=== PATIENT | male | born 1985 | race Two or more races ===

== ENCOUNTER 2021-08-09 08:52 | Emergency (ER) | payer BC, OTHER ==
[~2021-08-09] VITALS: Ht 175.3 cm; Wt 63.5 kg
[2021-08-09 10:45] LABS: Basophils # (auto) 0 10 ^3/uL (0-0.2); Basophils % (auto) 0.4 % (0.0-2.0); Eosinophils # (auto) 0 10 ^3/uL (0-0.8); Eosinophils % (auto) 0.2 % (0.0-7.0); Hematocrit 48.9 % (41.0-53.0); Hemoglobin 16.9 g/dL (13.5-17.5); Lymphocytes # (auto) 1.5 10 ^3/uL (0.4-5.4); Lymphocytes % (auto) 16.6 % (10.0-50.0); Mean Corpuscular Hemoglobin 31.3 pg (28.0-32.0); Mean Corpuscular Hgb Conc. 34.5 g/dL (32.0-36.0); Mean Corpuscular Volume 90.7 fL (80.0-100.0); Monocytes # (auto) 0.3 10 ^3/uL (0-1.3); Monocytes % (auto) 3.4 % (0.0-12.0); Neutrophils # (auto) 7.3 10 ^3/uL (1.6-8.6); Neutrophils % (auto) 79.4 % (37.0-80.0); Nucleated Red Blood Cells % 0.1 %; Red Blood Cells 5.39 10^6/uL (4.5-5.90); Red Cell Distribution Width 13.6 % (11.8-14.3); White Blood Cell 9.1 10^3/uL (4.4-10.8)
[2021-08-09 10:59] LABS: BUN/Creatinine Ratio 8.3; Calcium 9.2 mg/dL (8.5-10.1); Potassium 4.7 mmol/L (3.5-5.1)
[2021-08-09 11:02] LABS: Bilirubin, Total 0.5 mg/dL (0.2-1.0); Total Protein 7.7 g/dL (6.4-8.2)
[2021-08-09] MEDS ORDERED: ONDANSETRON ODT 4 MG TAB PO ONE (13:45)
[2021-08-09] MEDS ORDERED: ALUM & MAG HYDROX-SIMETH LIQ(MAALOX) 30 ML PO ONE (13:45)
[2021-08-09] MEDS ORDERED: LIDOCAINE VISCOUS 2% 15ML UD PO ONE (13:45)
[2021-08-09] MEDS ORDERED: FAMOTIDINE 20 MG TAB PO ONE (13:45)
[2021-08-09] MEDS ORDERED: OMEP-434 PO (15:53)
[2021-08-09 16:16] VITALS: BP 130/81
== END 2021-08-09 16:18 | disposition home or self-care (01) ==
LOC: ER 08:52
DX: K21.9 Gastro-esophageal reflux disease without esophagitis (principal)
CPT/HCPCS: 36415; 80053; 82150; 83690; 85025; 99284; Q0162

== ENCOUNTER 2021-08-14 00:13 | Emergency (ER) | payer BC ==
[~2021-08-14] VITALS: Ht 175.3 cm; Wt 108.9 kg
[~2021-08-14 00:13] MED LIST: OMEP-434 PO
[2021-08-14 01:31] LABS: Basophils # (auto) 0.1 10 ^3/uL (0-0.2); Basophils % (auto) 0.6 % (0.0-2.0); Eosinophils # (auto) 0.1 10 ^3/uL (0-0.8); Eosinophils % (auto) 1.1 % (0.0-7.0); Hematocrit 46.4 % (41.0-53.0); Hemoglobin 15.7 g/dL (13.5-17.5); Lymphocytes # (auto) 2.6 10 ^3/uL (0.4-5.4); Lymphocytes % (auto) 22.9 % (10.0-50.0); Mean Corpuscular Hemoglobin 30.7 pg (28.0-32.0); Mean Corpuscular Hgb Conc. 33.8 g/dL (32.0-36.0); Mean Corpuscular Volume 90.8 fL (80.0-100.0); Monocytes # (auto) 0.5 10 ^3/uL (0-1.3); Monocytes % (auto) 4.8 % (0.0-12.0); Neutrophils # (auto) 7.9 10 ^3/uL (1.6-8.6); Neutrophils % (auto) 70.6 % (37.0-80.0); Nucleated Red Blood Cells % 0.1 %; Red Blood Cells 5.11 10^6/uL (4.5-5.90); Red Cell Distribution Width 13.6 % (11.8-14.3); White Blood Cell 11.2 10^3/uL (4.4-10.8)
[2021-08-14 01:48] LABS: Albumin 3.8 g/dL (3.4-5.0); BUN/Creatinine Ratio 6.1; Calcium 8.9 mg/dL (8.5-10.1); Potassium 4.1 mmol/L (3.5-5.1)
[2021-08-14 01:50] LABS: Bilirubin, Total 0.5 mg/dL (0.2-1.0); Total Protein 7.4 g/dL (6.4-8.2)
[2021-08-14] MEDS ORDERED: ALUM & MAG HYDROX-SIMETH LIQ(MAALOX) 30 ML PO ONE (02:00)
[2021-08-14] MEDS ORDERED: DICYCLOMINE HCL (10MG/ML) 2 ML AMPULE IM ONE (02:00)
[2021-08-14] MEDS ORDERED: DONNATAL 5ml ORAL Elix (BELLADONNA ALK-PHENOBARB) PO ONE (02:00)
[2021-08-14] MEDS ORDERED: LIDOCAINE VISCOUS 2% 15ML UD PO ONE (02:00)
[2021-08-14 04:00] VITALS: BP 119/74
== END 2021-08-14 04:15 | disposition home or self-care (01) ==
LOC: ER 00:13
DX: K21.9 Gastro-esophageal reflux disease without esophagitis (principal); K29.70 Gastritis, unspecified, without bleeding
CPT/HCPCS: 36415; 74176; 80053; 85025; 96372; 99284; J0500

== ENCOUNTER 2021-08-17 01:57 | Emergency (ER) | payer BC ==
[~2021-08-17] VITALS: Ht 175.3 cm; Wt 108.9 kg
[2021-08-17 03:16] LABS: Basophils # (auto) 0 10 ^3/uL (0-0.2); Basophils % (auto) 0.1 % (0.0-2.0); Eosinophils # (auto) 0 10 ^3/uL (0-0.8); Hematocrit 46.8 % (41.0-53.0); Hemoglobin 15.9 g/dL (13.5-17.5); Lymphocytes # (auto) 1.6 10 ^3/uL (0.4-5.4); Lymphocytes % (auto) 13.9 % (10.0-50.0); Mean Corpuscular Hemoglobin 30.7 pg (28.0-32.0); Mean Corpuscular Hgb Conc. 33.9 g/dL (32.0-36.0); Mean Corpuscular Volume 90.5 fL (80.0-100.0); Monocytes # (auto) 0.5 10 ^3/uL (0-1.3); Monocytes % (auto) 4.5 % (0.0-12.0); Neutrophils # (auto) 9.2 10 ^3/uL (1.6-8.6); Neutrophils % (auto) 81.5 % (37.0-80.0); Nucleated Red Blood Cells % 0.2 %; Red Blood Cells 5.17 10^6/uL (4.5-5.90); Red Cell Distribution Width 13.5 % (11.8-14.3); White Blood Cell 11.3 10^3/uL (4.4-10.8)
[2021-08-17 03:23] LABS: Albumin 3.9 g/dL (3.4-5.0); BUN/Creatinine Ratio 7.3; Potassium 3.8 mmol/L (3.5-5.1)
[2021-08-17 03:26] LABS: Bilirubin, Total 0.6 mg/dL (0.2-1.0); Total Protein 7.7 g/dL (6.4-8.2)
[2021-08-17] MEDS ORDERED: ONDANSETRON HCL 4 MG/2 ML VIAL IV ONE ×2 (04:30→08:45)
[2021-08-17] MEDS ORDERED: MORPHINE SULFATE 4 MG/ML SYR/VIAL IV ONE (04:30)
[2021-08-17 05:17] LABS: Urine WBC None Seen /hpf (0 - 3)
[2021-08-17] MEDS ORDERED: LIDOCAINE VISCOUS 2% 15ML UD PO ONE (05:30)
[2021-08-17] MEDS ORDERED: ALUM & MAG HYDROX-SIMETH LIQ(MAALOX) 30 ML PO ONE (05:30)
[2021-08-17] MEDS ORDERED: DONNATAL 5ml ORAL Elix (BELLADONNA ALK-PHENOBARB) PO ONE (05:30)
[2021-08-17 05:32] LABS: Urine Amorphous Crystal MOD /hpf (None Seen); Urine Bacteria FEW /hpf (None Seen); Urine Blood TRACE /uL (Negative); Urine Mucus FEW (None Seen); Urine Specific Gravity 1.021 (1.001-1.035)
[2021-08-17] MEDS ORDERED: KETOROLAC TROMETH 30 MG/ML 1ML VIAL IV ONE (08:45)
[2021-08-17 09:12] LABS: Alcohol, Urine < 3.0 mg/dL (0-10); Amphetamine Screen, Urine NEGATIVE (NEGATIVE); Barbiturate Scree,Urine NEGATIVE (NEGATIVE); Benzodiazephine Screen, Urine NEGATIVE (NEGATIVE); Cannabinoid Screen, Urine NEGATIVE (NEGATIVE); Cocaine Screen, Urine NEGATIVE (NEGATIVE); Opiate Scree,Urine NEGATIVE (NEGATIVE); Phencyclidine Screen, Urine NEGATIVE (NEGATIVE)
[2021-08-17 10:00] VITALS: BP 107/61
== END 2021-08-17 12:38 | disposition home or self-care (01) ==
LOC: ER 01:57
DX: K80.80 Other cholelithiasis without obstruction (principal); R91.1 Solitary pulmonary nodule
CPT/HCPCS: 36415; 74176; 80053; 80307; 81001; 83690; 85025; 96374; 96375; 96376; 99285; J1885; J2270; J2405

== ENCOUNTER 2021-08-20 07:39 | Inpatient (IN) | payer BC, OTHER ==
[~2021-08-20] VITALS: Ht 175.3 cm; Wt 166.4 kg
[2021-08-20] MEDS ORDERED: LIDOCAINE VISCOUS 2% 15ML UD PO ONE (08:30)
[2021-08-20] MEDS ORDERED: DONNATAL 5ml ORAL Elix (BELLADONNA ALK-PHENOBARB) PO ONE (08:30)
[2021-08-20] MEDS ORDERED: ALUM & MAG HYDROX-SIMETH LIQ(MAALOX) 30 ML PO ONE (08:30)
[2021-08-20 08:54] LABS: Basophils # (auto) 0 10 ^3/uL (0-0.2); Basophils % (auto) 0.3 % (0.0-2.0); Eosinophils # (auto) 0 10 ^3/uL (0-0.8); Eosinophils % (auto) 0.3 % (0.0-7.0); Hematocrit 46.3 % (41.0-53.0); Hemoglobin 16.1 g/dL (13.5-17.5); Lymphocytes # (auto) 1.4 10 ^3/uL (0.4-5.4); Lymphocytes % (auto) 11.9 % (10.0-50.0); Mean Corpuscular Hgb Conc. 34.7 g/dL (32.0-36.0); Mean Corpuscular Volume 89.5 fL (80.0-100.0); Monocytes # (auto) 0.8 10 ^3/uL (0-1.3); Monocytes % (auto) 6.3 % (0.0-12.0); Neutrophils # (auto) 9.8 10 ^3/uL (1.6-8.6); Neutrophils % (auto) 81.2 % (37.0-80.0); Nucleated Red Blood Cells % 0.1 %; Red Blood Cells 5.18 10^6/uL (4.5-5.90); Red Cell Distribution Width 13.1 % (11.8-14.3); White Blood Cell 12.1 10^3/uL (4.4-10.8)
[2021-08-20 09:06] LABS: Albumin 3.8 g/dL (3.4-5.0); Calcium 9.4 mg/dL (8.5-10.1); Potassium 4.1 mmol/L (3.5-5.1)
[2021-08-20 09:09] LABS: BUN/Creatinine Ratio 9.2; Bilirubin, Total 1.3 mg/dL (0.2-1.0); Total Protein 8.1 g/dL (6.4-8.2)
[2021-08-20] MEDS ORDERED: SODIUM CHLORIDE 0.9% 1,000 ML IV ONE (09:15)
[2021-08-20] MEDS ORDERED: HYDROmorphone HCL 2 MG/ML VL/or syr IV ONE ×3 (09:45→15:00)
[2021-08-20] MEDS ORDERED: ONDANSETRON HCL 4 MG/2 ML VIAL IV ONE ×2 (09:45→10:15)
[2021-08-20] MEDS ORDERED: PIPERACILLIN-TAZOB 3.375GM 100 ML IV ONE (13:15)
[2021-08-20] MEDS ORDERED: HYDROmorphone HCL 2 MG/ML VL/or syr IV PRN (14:45)
[2021-08-20] MEDS ORDERED: ONDANSETRON HCL 4 MG/2 ML VIAL IV PRN (14:45)
[2021-08-20] MEDS: SODIUM CHLORIDE 0.9% 1,000 ML IV SCH ×2 (15:02→22:45)
[2021-08-20 15:20] LABS: Cholesterol 147 mg/dL (< 200)
[2021-08-20 15:23] LABS: HDL Cholesterol 50 mg/dL (40-59); LDL Cholesterol 85 mg/dL (< 100); Triglycerides 87 mg/dL (< 150)
[2021-08-20] MEDS: HYDROmorphone HCL 2 MG/ML VL/or syr IV PRN ×2 (17:57→23:39)
[2021-08-20 19:38] VITALS: BP 122/66
[2021-08-20 22:00] VITALS: BP 135/79
[2021-08-20] MEDS: PIPERACILLIN-TAZOB 3.375GM 100 ML IV SCH (23:38)
[2021-08-21] MEDS ORDERED: PANT1INJ3 IV (02:48)
[2021-08-21] MEDS: HYDROmorphone HCL 2 MG/ML VL/or syr IV PRN ×3 (03:06→15:00)
[2021-08-21 05:27] VITALS: BP 127/85
[2021-08-21] MEDS: PIPERACILLIN-TAZOB 3.375GM 100 ML IV SCH (06:02)
[2021-08-21 06:28] LABS: Basophils # (auto) 0 10 ^3/uL (0-0.2); Basophils % (auto) 0.3 % (0.0-2.0); Eosinophils # (auto) 0.1 10 ^3/uL (0-0.8); Eosinophils % (auto) 1.2 % (0.0-7.0); Hematocrit 43.5 % (41.0-53.0); Hemoglobin 15.2 g/dL (13.5-17.5); Lymphocytes # (auto) 1.8 10 ^3/uL (0.4-5.4); Lymphocytes % (auto) 18.1 % (10.0-50.0); Mean Corpuscular Hemoglobin 31.4 pg (28.0-32.0); Mean Corpuscular Volume 89.8 fL (80.0-100.0); Monocytes # (auto) 0.9 10 ^3/uL (0-1.3); Monocytes % (auto) 8.9 % (0.0-12.0); Neutrophils # (auto) 7.3 10 ^3/uL (1.6-8.6); Neutrophils % (auto) 71.5 % (37.0-80.0); Red Blood Cells 4.85 10^6/uL (4.5-5.90); Red Cell Distribution Width 13.2 % (11.8-14.3); White Blood Cell 10.2 10^3/uL (4.4-10.8)
[2021-08-21 06:31] LABS: Albumin 3.3 g/dL (3.4-5.0); Calcium 8.9 mg/dL (8.5-10.1); Potassium 4.3 mmol/L (3.5-5.1)
[2021-08-21 06:36] LABS: BUN/Creatinine Ratio 8.6; Bilirubin, Total 1.6 mg/dL (0.2-1.0); Total Protein 7.2 g/dL (6.4-8.2)
[2021-08-21 08:00] VITALS: BP 140/84
[2021-08-21 08:35] VITALS: BP 140/84
[2021-08-21 09:39] LABS: INR 1.1 (0.9-1.15); Partial Thromboplastin Time 30.7 sec (23.6-33.0)
[2021-08-21] MEDS ORDERED: MIDAZOLAM HCL 2MG/2ML 2ml VIAL (1mg/ml) ONE (10:01)
[2021-08-21] MEDS ORDERED: MEPERIDINE HCL (50 MG/ML) 1 ML VIAL ONE (10:01)
[2021-08-21] MEDS ORDERED: fentaNYL CITRATE 100 MCG/2 ML VL ONE (10:01)
[2021-08-21] MEDS ORDERED: ceFAZolin 1GM/50ML 100 ML IV ONE (10:03)
[2021-08-21] MEDS ORDERED: BUPIVACAINE W/ EPINEPH 0.25% INJ 50ML MDV ONE (10:08)
[2021-08-21] MEDS ORDERED: SUCCINYLCHOLINE CHLORIDE 20 MG/ML 10ML VIAL IV ONE (10:08)
[2021-08-21] MEDS ORDERED: SUGAMMADEX 200mg/2ml Vial (100MG/ML) IV ONE (10:15)
[2021-08-21] MEDS ORDERED: ONDANSETRON HCL 4 MG/2 ML VIAL IV ONE (10:15)
[2021-08-21] MEDS ORDERED: ROCURONIUM 10MG/ML 10ML VIAL IV ONE (10:15)
[2021-08-21] MEDS ORDERED: PROPOFOL 10 MG/ML 20 ML IV ONE (10:18)
[2021-08-21] MEDS ORDERED: DexAMETHasone SOD PHOS 10MG/1ML VIAL INJ ONE (10:18)
[2021-08-21] MEDS ORDERED: MORPHINE SULFATE 4 MG/ML SYR/VIAL IV PRN (11:30)
[2021-08-21] MEDS ORDERED: MIDAZOLAM HCL 2MG/2ML 2ml VIAL (1mg/ml) IV PRN (11:30)
[2021-08-21] MEDS ORDERED: HYDROmorphone HCL 2 MG/ML VL/or syr IV PRN (11:30)
[2021-08-21] MEDS ORDERED: ePHEDrine SULFATE 50 MG/ML AMP IV PRN (11:30)
[2021-08-21] MEDS ORDERED: METOCLOPRAMIDE HCL 5MG/ml INJ 2ml VIAL IV PRN (11:30)
[2021-08-21] MEDS ORDERED: ONDANSETRON HCL 4 MG/2 ML VIAL IV PRN (11:30)
[2021-08-21] MEDS ORDERED: LABETALOL HCL 5 MG/ML 4ML SYRINGE IV PRN (11:30)
[2021-08-21] MEDS ORDERED: HYDROmorphone HCL 2 MG/ML VL/or syr ONE ×2 (11:55→11:58)
[2021-08-21] MEDS: SODIUM CHLORIDE 0.9% 1,000 ML IV SCH ×2 (13:05→22:12)
[2021-08-21] MEDS: metroNIDAZOLE 500MG/100ML 100 ML IV SCH ×2 (14:00→22:12)
[2021-08-21] MEDS: HYDROcodone-ACET 5/325MG TAB PO PRN (16:59)
[2021-08-21 17:00] VITALS: BP 109/70
[2021-08-21] MEDS ORDERED: HYDROmorphone HCL 2 MG/ML VL/or syr IV ONE (19:00)
[2021-08-21] MEDS ORDERED: KETOROLAC TROMETH 30 MG/ML 1ML VIAL IV ONE (19:00)
[2021-08-21 22:00] VITALS: BP 102/60
[2021-08-22 01:00] LABS: Urine Amorphous Crystal FEW /hpf (None Seen); Urine Bacteria FEW /hpf (None Seen); Urine Blood 1+ /uL (Negative); Urine Mucus FEW (None Seen); Urine Specific Gravity 1.039 (1.001-1.035); Urine WBC 3 /hpf (0 - 3)
[2021-08-22 01:14] LABS: Alcohol, Urine < 3.0 mg/dL (0-10); Amphetamine Screen, Urine NEGATIVE (NEGATIVE); Barbiturate Scree,Urine POSITIVE (NEGATIVE); Benzodiazephine Screen, Urine POSITIVE (NEGATIVE); Cocaine Screen, Urine NEGATIVE (NEGATIVE); Opiate Scree,Urine POSITIVE (NEGATIVE); Phencyclidine Screen, Urine NEGATIVE (NEGATIVE)
[2021-08-22 02:00] LABS: Cannabinoid Screen, Urine NEGATIVE (NEGATIVE)
[2021-08-22] MEDS: HYDROmorphone HCL 2 MG/ML VL/or syr IV PRN ×3 (04:53→20:10)
[2021-08-22 05:00] VITALS: BP 116/66
[2021-08-22] MEDS: metroNIDAZOLE 500MG/100ML 100 ML IV SCH ×3 (05:45→21:50)
[2021-08-22] MEDS: SODIUM CHLORIDE 0.9% 1,000 ML IV SCH (06:30)
[2021-08-22 07:14] LABS: Basophils # (auto) 0 10 ^3/uL (0-0.2); Basophils % (auto) 0.4 % (0.0-2.0); Eosinophils # (auto) 0 10 ^3/uL (0-0.8); Eosinophils % (auto) 0.3 % (0.0-7.0); Hemoglobin 13.4 g/dL (13.5-17.5); Lymphocytes # (auto) 1.6 10 ^3/uL (0.4-5.4); Lymphocytes % (auto) 15.5 % (10.0-50.0); Mean Corpuscular Hgb Conc. 34.4 g/dL (32.0-36.0); Mean Corpuscular Volume 90.4 fL (80.0-100.0); Monocytes # (auto) 0.8 10 ^3/uL (0-1.3); Monocytes % (auto) 7.5 % (0.0-12.0); Neutrophils # (auto) 7.9 10 ^3/uL (1.6-8.6); Neutrophils % (auto) 76.3 % (37.0-80.0); Nucleated Red Blood Cells % 0.1 %; Red Blood Cells 4.31 10^6/uL (4.5-5.90); Red Cell Distribution Width 13.1 % (11.8-14.3); White Blood Cell 10.4 10^3/uL (4.4-10.8)
[2021-08-22 07:28] LABS: Potassium 4.3 mmol/L (3.5-5.1)
[2021-08-22 07:33] LABS: Albumin 2.6 g/dL (3.4-5.0); Calcium 8.4 mg/dL (8.5-10.1)
[2021-08-22 07:43] LABS: Bilirubin, Total 0.8 mg/dL (0.2-1.0); Total Protein 6.2 g/dL (6.4-8.2)
[2021-08-22] MEDS: levoFLOXacin 500MG 100 ML IV SCH (08:45)
[2021-08-22] MEDS: FAMOTIDINE (10MG/ML) 2ML VL IV SCH (08:45)
[2021-08-22] MEDS: HYDROcodone-ACET 5/325MG TAB PO PRN (08:58)
[2021-08-22 09:00] VITALS: BP 110/66
[2021-08-22 13:00] VITALS: BP 107/61
[2021-08-22 17:00] VITALS: BP 106/66
[2021-08-22 22:00] VITALS: BP 117/74
[2021-08-23 05:00] VITALS: BP 114/77
[2021-08-23] MEDS: metroNIDAZOLE 500MG/100ML 100 ML IV SCH (06:08)
[2021-08-23 06:14] LABS: Basophils # (auto) 0 10 ^3/uL (0-0.2); Basophils % (auto) 0.8 % (0.0-2.0); Eosinophils # (auto) 0 10 ^3/uL (0-0.8); Eosinophils % (auto) 0.5 % (0.0-7.0); Hematocrit 39.7 % (41.0-53.0); Lymphocytes # (auto) 1.1 10 ^3/uL (0.4-5.4); Lymphocytes % (auto) 19.4 % (10.0-50.0); Mean Corpuscular Hemoglobin 31.7 pg (28.0-32.0); Mean Corpuscular Hgb Conc. 35.3 g/dL (32.0-36.0); Monocytes # (auto) 0.6 10 ^3/uL (0-1.3); Monocytes % (auto) 10.4 % (0.0-12.0); Neutrophils # (auto) 3.8 10 ^3/uL (1.6-8.6); Neutrophils % (auto) 68.9 % (37.0-80.0); Nucleated Red Blood Cells % 0.1 %; Red Blood Cells 4.41 10^6/uL (4.5-5.90); Red Cell Distribution Width 13.2 % (11.8-14.3); White Blood Cell 5.5 10^3/uL (4.4-10.8)
[2021-08-23 06:22] LABS: Potassium 4.1 mmol/L (3.5-5.1)
[2021-08-23 06:52] LABS: Albumin 2.8 g/dL (3.4-5.0); BUN/Creatinine Ratio 12.6; Bilirubin, Total 0.6 mg/dL (0.2-1.0); Calcium 8.3 mg/dL (8.5-10.1); Total Protein 6.3 g/dL (6.4-8.2)
[2021-08-23] MEDS: levoFLOXacin 500MG 100 ML IV SCH (08:42)
[2021-08-23] MEDS: FAMOTIDINE (10MG/ML) 2ML VL IV SCH (08:43)
[2021-08-23 09:00] VITALS: BP 122/79
[2021-08-23] MEDS: HYDROmorphone HCL 2 MG/ML VL/or syr IV PRN (09:09)
[2021-08-23 13:00] VITALS: BP 116/69
[2021-08-23] MEDS: metroNIDAZOLE 500 MG TAB PO SCH ×2 (14:45→22:23)
[2021-08-23 16:37] VITALS: BP 114/80
[2021-08-23] MEDS: HYDROcodone-ACET 5/325MG TAB PO PRN (18:57)
[2021-08-23 22:00] VITALS: BP 106/70
[2021-08-23] MEDS: CIPROFLOXACIN HCL 500 MG TAB PO SCH (22:23)
[2021-08-24 05:00] VITALS: BP 107/81
[2021-08-24] MEDS: metroNIDAZOLE 500 MG TAB PO SCH ×2 (06:04→14:00)
[2021-08-24 06:50] LABS: Albumin 2.9 g/dL (3.4-5.0); Calcium 8.8 mg/dL (8.5-10.1)
[2021-08-24 06:59] LABS: BUN/Creatinine Ratio 8.5; Bilirubin, Total 0.4 mg/dL (0.2-1.0); Total Protein 6.5 g/dL (6.4-8.2)
[2021-08-24 07:20] LABS: Basophils # (auto) 0 10 ^3/uL (0-0.2); Basophils % (auto) 0.7 % (0.0-2.0); Eosinophils # (auto) 0.1 10 ^3/uL (0-0.8); Eosinophils % (auto) 2.9 % (0.0-7.0); Hematocrit 42.9 % (41.0-53.0); Hemoglobin 14.5 g/dL (13.5-17.5); Lymphocytes # (auto) 1.3 10 ^3/uL (0.4-5.4); Lymphocytes % (auto) 30.1 % (10.0-50.0); Mean Corpuscular Hemoglobin 30.5 pg (28.0-32.0); Mean Corpuscular Hgb Conc. 33.9 g/dL (32.0-36.0); Mean Corpuscular Volume 89.9 fL (80.0-100.0); Monocytes # (auto) 0.5 10 ^3/uL (0-1.3); Monocytes % (auto) 11.8 % (0.0-12.0); Neutrophils # (auto) 2.4 10 ^3/uL (1.6-8.6); Neutrophils % (auto) 54.5 % (37.0-80.0); Nucleated Red Blood Cells % 0.2 %; Red Blood Cells 4.77 10^6/uL (4.5-5.90); White Blood Cell 4.4 10^3/uL (4.4-10.8)
[2021-08-24 09:00] VITALS: BP 119/70
[2021-08-24] MEDS: FAMOTIDINE (10MG/ML) 2ML VL IV SCH (10:24)
[2021-08-24] MEDS: CIPROFLOXACIN HCL 500 MG TAB PO SCH (10:24)
[2021-08-24] MEDS ORDERED: ONDA-144 PO ×2 (11:05)
[2021-08-24] MEDS ORDERED: DOCU-94 PO ×2 (11:05)
[2021-08-24] MEDS ORDERED: METR500T PO ×2 (11:05)
[2021-08-24] MEDS ORDERED: LEVO500T31 PO ×2 (11:05)
[2021-08-24 12:01] VITALS: BP 119/90
[2021-08-24 13:00] VITALS: BP 118/68
== END 2021-08-24 14:10 | disposition home or self-care (01) | DRG 854 ==
LOC: ER 07:39 → OVERFLOW 14:45 → CENTRAL 20:47
PROVIDERS: ADMIT Registered Nurse; ATTEND Internal Medicine
PROC: 0FT44ZZ Resection of Gallbladder, Percutaneous Endoscopic Approach (ICD-10-PCS; principal; 2021-08-21 10:23)
DX: A41.9 Sepsis, unspecified organism (principal); K80.00 Calculus of gallbladder with acute cholecystitis without obstruction; E66.01 Morbid (severe) obesity due to excess calories; K76.0 Fatty (change of) liver, not elsewhere classified; Z68.37 Body mass index [BMI] 37.0-37.9, adult; Z20.822 Contact with and (suspected) exposure to COVID-19
CPT/HCPCS: 36415; 76705; 78226; 80053; 80061; 80307; 80320; 81001; 82150; 83036; 83690; 85025; 85610; 85730; 86850; 86900; 86901; 87081; 96361; 96365; 96375; G0378; J0330; J0690; J1100; J1885; J1956; J2250; J2405; J2543; J2704; J3490